=== PATIENT | female | born 1980 | race Caucasian/White ===

== ENCOUNTER 2019-06-05 15:03 | Inpatient (IN) | payer BC, MEDICAID ==
[2019-06-05] VITALS (7 sets, daily range): BP systolic 97–140; BP diastolic 54–80
[~2019-06-05] VITALS: Ht 172.7 cm; Wt 108.5 kg
--- NOTE | ~2019-06-05 | EKG ---
[place], [place] ELECTROCARDIOGRAM REPORT NAME: MEREDITH MEYERS UNIT #: [id number] ROOM: 427 DOCTOR: HUGO DRAFT REPORT BIRTHDATE: [birth year] [facility] Test Date: 2019-06-05 Test Time: 15:42:55 Pat Name: MEREDITH MEYERS Department: Room: 427 Gender: F Loan Associate: TL : 1980 Requested By: SHONA WYNN DNP Order Number: [id number] Reading MD: Rodrigo Palafox MD Measurements Intervals [place] Rate: 56 P: 40 AL: 133 QRS: -16 QRSD: 81 T: -1 QT: 457 QTc: 442 Interpretive Statements Sinus rhythm Borderline left axis deviation Low voltage, precordial leads No previous ECG available for comparison Electronically Signed On 06-07-2019 15:27:18 PDT by Rodrigo Palafox MD CM:EKGRPT:ELECTROCARDIOGRAM REPORT [id number] 1527 SHONA VERDUZCOANY DRAFT REPORT SHONA WYNN DNP
--- NOTE | ~2019-06-05 | CON ---
[place], [place] REPORT OF CONSULTATION NAME: MEREDITH MEYERS UNIT #: [id number] ROOM: 427 DOCTOR: BELTRAN NEALYUDY BIRTHDATE: [birth year] DOS: 06/07/2019 GASTROENDOSCOPIC CONSULTATION REPORT HISTORY OF PRESENT ILLNESS: This is a 39-year-old patient who was presented with chief complaint of epigastric distress, anemia, nausea, status post transfusion of 2 units of packed cells at the time of admission, her hemoglobin A1c was 5.1. Comprehensive metabolic panel, potassium was 3.1. Liver function test normal. Iron 17. B12, folate was reviewed. CBC differential was noticed H and H of 6 and 27, microcytic indices. Vitamin D was low. INR was 0.9. Chest x-ray was reviewed, no acute pathology. Lactic acid was normal. PAST MEDICAL HISTORY: Associated with gastric bypass and weight loss and subsequent regain right now, he is back to 230. Past medical history also associated with migraine, cephalalgia, anxiety and depression. PAST SURGICAL HISTORY: Gastric bypass and Renal. SOCIAL HISTORY: Nonsmoker, nonalcohol consumer. FAMILY HISTORY: Noncontributory. ALLERGIES: AMOXICILLIN. MEDICATIONS: List reviewed. REVIEW OF SYSTEMS: In general: HEENT: Denies double vision, blurred vision. RESPIRATORY: Denies shortness of breath. CARDIOVASCULAR: No chest pain. DIGESTIVE SYSTEM: Nausea, epigastric distress, blood in stool. Post-transfusion profound anemia. PHYSICAL EXAMINATION: GENERAL: Obese patient. HEENT: Head normocephalic, nontraumatic. Mouth and buccal mucosa benign. NECK: Supple, no thyromegaly, no cervical lymphadenopathy. CHEST: Symmetric anatomy, equal expansion. No wheeze, no rhonchi. HEART: Normal sinus rhythm, no gallop, no murmur. ABDOMEN: Obese, soft. No hepato-organomegaly. Bowel sounds present. No pulsatile mass. EXTREMITIES: No cyanosis, no pedal edema. NEUROLOGIC: Alert, oriented to time, place, person. LABORATORY DATA: Labs reviewed. Records reviewed. Data reviewed. Urine culture greater than 100,000, heavy gram-negative bacilli sensitive to all tested antibiotics, supportive management as above. Latest H and H post-transfusion, improved to 9 and 33, B12 and vitamin D low. Comprehensive metabolic panel corrected, a low protein and magnesium 2.4. [place], [place] REPORT OF CONSULTATION NAME: MEREDITH MEYERS UNIT #: [id number] ROOM: 427 DOCTOR: YUDY GONG MD BIRTHDATE: [birth year] IMPRESSION: Urinary tract infection, profound anemia of iron deficiency, status post gastric bypass, ruling out anastomotic site ulcer. OTHER ADJUNCTIVE DIAGNOSES: Anxiety, migraine, cephalalgia depression, all has been recognized. PLAN AND DISCUSSION: We will organize EGD today. Thank you very much indeed. YUDY GONG MD CM:CONSTR:REPORT OF CONSULTATION 1603 06/08/19 0305 interface
--- NOTE | ~2019-06-05 | O ---
[place], [place] [facility]ATIVE NOTE [id number] UN[facility] #: [id number] ROOM: 427 DOCTOR: YUDY GONG MD BIRTHDATE: [birth year] DOS: GASTROENDOSCOPIC REPORT SUBJECTIVE: A 39-year-old patient who has presented with chief complaint of profound anemia, status post transfusion, undergoing investigation. The patient with a history of gastric bypass. PROCEDURE: Today's procedure part of investigation is panendoscopy plus biopsy. PREMEDICATION: Propofol. SCOPE: Olympus forward-viewing gastroscope Q10 video. REPORT: After putting the patient in left lateral position, application of lubricant to the scope, the scope was introduced thereafter, under direct visualization, advanced through the length of esophagus without difficulty. Gastric pouch was entered. Very minimal residual pouch was noticed, status post gastric bypass surgery was noticed. There is no ulceration. There is no anastomotic distress. Photographic series obtained. Biopsy from residual gastric pouch obtained. The patient extubated, tolerated the procedure well. IMPRESSION: EGD status post gastric bypass and status post biopsy. The anemia is not secondary to anastomotic ulcer as expected. PLAN AND DISCUSSION: Other causes of the anemia is microcytic iron deficient anemia has to be investigated. If she is discharged at this time, we are going to make arrangement for outpatient colonoscopy. YUDY GONG MD CM:OPRECORD:OPERATIVE NOTE 1623 1630 YUDY GONG MD 06/07/19 1629 interface
[2019-06-05 16:09] LABS: HEMATOCRIT 25.4 % (37.0-47.0); MEAN CELL VOLUME 62.6 fl (81.0-99.0); MEAN CORPUSCULAR HGB CONC 25.6 g/dl (33.0-37.0); NUCLEATED RED BLOOD CELL 0.3 % (0.0-0.0); PLATELET COUNT AUTOMATED 210 10*3/uL (130-400); RED BLOOD COUNT 4.06 10*6/uL (4.10-5.10); RED CELL DISTRI WIDTH 20.4 % (0-14.5); WHITE BLOOD COUNT 6.2 10*3/uL (4.8-10.8)
--- NOTE | 2019-06-05 16:10 | NUR ---
HEMOGLOBIN CRITICAL AT 6.5 CALLED AT THIS TIME. SHONA MATIAS NOTIFIED.
[2019-06-05 16:11] LABS: HEMOGLOBIN 6.5 g/dl (12.0-16.0)
[2019-06-05 16:17] LABS: ACT PARTIAL THROMBO TIME 23.6 SECONDS (20.0-32.1); INTERNATIONAL NORM RATIO 0.9 (2.0-3.5)
[2019-06-05 16:41] LABS: BASOPHILS 2 % (0-1); TOTAL CELLS COUNTED 100 #CELLS
[2019-06-05 16:42] LABS: MICROCYTOSIS MODERATE; OVALOCYTES FEW; PLATELET SUFFICIENCY NORMAL (NORMAL); SPHEROCYTES FEW
[2019-06-05 16:47] LABS: ALBUMIN 3.2 gm/dl (3.1-4.5); ALKALINE PHOSPHATASE 81 U/L (45-117); BUN 13 mg/dl (7-24); CHLORIDE 117 mmol/L (98-107); CREATININE 0.94 mg/dL (0.55-1.02); IRON 14 ug/dL (50-170); LIPASE 69 U/L (73-393); POTASSIUM 3.3 mmol/L (3.5-5.1); SGOT/AST 9 IU/L (3-35); SGPT/ALT 7 U/L (12-78); SODIUM 143 mmol/L (136-145); TOTAL IRON BINDING CAPACITY 488 ug/dl (250-450); TOTAL PROTEIN 6.5 gm/dL (6.4-8.2)
[2019-06-05 16:59] LABS: BILIRUBIN NEGATIVE (NEGATIVE); BLOOD NEGATIVE (NEGATIVE); CLARITY SL CLOUDY (CLEAR); COLOR YELLOW (YELLOW); GLUCOSE NEGATIVE (NEGATIVE); KETONE NEGATIVE (NEGATIVE); LEUKO ESTERASE TRACE (NEGATIVE); NITRITE POSITIVE (NEGATIVE); SPECIFIC GRAVITY 1.015 (1.005-1.030); UROBILINOGEN 0.2 E.U./dl (0.2-1.0)
[2019-06-05 17:07] LABS: TROPONIN I < 0.015 ng/ml (<0.045)
[2019-06-05 17:22] LABS: BACTERIA 3+
--- NOTE | 2019-06-05 19:22 | NUR ---
SPOKE WITH AMY TO NOTIFY OF ETA TO ROOM.
--- NOTE | 2019-06-05 19:35 | NUR ---
A 39, admitted to , under the services of LUIGI Daugherty DO with a diagnosis of GI BLEED, ANEMIA. Chief complaint is C/O DARK STOOLS X 1 WEEK. Patient arrived via stretcher from ER. Monitor applied. Initial assessment completed. Vital signs taken and recorded. LUIGI DAUGHERTY DO notified of admission to the unit. Orders received. See assessment for past medical history, medications and allergies. Patient and/or family oriented to unit. [facility] visitation policy reviewed. Clothing/patient valuable form completed. NASREEN ALVARADO
[2019-06-05] MEDS ORDERED: KLONOPIN2 M1 PO (20:12)
[2019-06-05] MEDS ORDERED: ZANAFLEX6 M1 PO (20:14)
[2019-06-05] MEDS ORDERED: ZOLOFT100 MG PO (20:14)
[2019-06-06] VITALS (10 sets, daily range): BP systolic 121–154; BP diastolic 66–82
[2019-06-06 00:40] LABS: BASO % 0.4 % (0.0-1.0); EOS # 0.1 10*3/uL (0.0-0.4); EOS % 1.9 % (1.0-4.0); HEMATOCRIT 28.4 % (37.0-47.0); HEMOGLOBIN 7.5 g/dl (12.0-16.0); LYMPH # 1.6 10*3/uL (1.3-4.4); LYMPH % 23.4 % (27.0-41.0); MEAN CELL VOLUME 65.4 fl (81.0-99.0); MEAN CORPUSCULAR HGB 17.3 pg (27.0-31.0); MEAN CORPUSCULAR HGB CONC 26.4 g/dl (33.0-37.0); MONO # 0.5 10*3/uL (0.1-1.0); MONO % 7.1 % (3.0-9.0); NEUT # 4.6 10*3/uL (2.3-7.9); NEUT % 66.2 % (47.0-73.0); NUCLEATED RED BLOOD CELL 0.4 % (0.0-0.0); PLATELET COUNT AUTOMATED 181 10*3/uL (130-400); RED BLOOD COUNT 4.34 10*6/uL (4.10-5.10); WHITE BLOOD COUNT 6.9 10*3/uL (4.8-10.8)
--- NOTE | 2019-06-06 02:03 | NUR ---
PATIENT MEDICATED WITH TYLENOL 650MG PER PRN ORDER FOR C/O HEADACHE. RATED PAIN A 7/10 WITH 10 BEING THE WORST. TEMP TAKEN PRIOR TO TYLENOL WAS 100. SEE EMAR. REINFORCED USE OF CALL LIGHT.
[2019-06-06 06:27] LABS: BASO % 0.3 % (0.0-1.0); EOS % 0.6 % (1.0-4.0); HEMATOCRIT 26.9 % (37.0-47.0); HEMOGLOBIN 7.3 g/dl (12.0-16.0); LYMPH # 0.7 10*3/uL (1.3-4.4); LYMPH % 11.4 % (27.0-41.0); MEAN CELL VOLUME 64.7 fl (81.0-99.0); MEAN CORPUSCULAR HGB 17.5 pg (27.0-31.0); MEAN CORPUSCULAR HGB CONC 27.1 g/dl (33.0-37.0); MONO # 0.2 10*3/uL (0.1-1.0); MONO % 3.8 % (3.0-9.0); NEUT # 5.3 10*3/uL (2.3-7.9); NEUT % 83.3 % (47.0-73.0); NUCLEATED RED BLOOD CELL 0.5 % (0.0-0.0); PLATELET COUNT AUTOMATED 182 10*3/uL (130-400); RED BLOOD COUNT 4.16 10*6/uL (4.10-5.10); RED CELL DISTRI WIDTH 22.8 % (0-14.5); WHITE BLOOD COUNT 6.3 10*3/uL (4.8-10.8)
--- NOTE | 2019-06-06 06:30 | NUR ---
MESSAGE LEFT ON DR. GONG'S ANSWERING SERVICE REGARDING CONSULT ORDER.
[2019-06-06 06:37] LABS: ALBUMIN 3.1 gm/dl (3.1-4.5); ALKALINE PHOSPHATASE 88 U/L (45-117); BUN 10 mg/dl (7-24); CHLORIDE 119 mmol/L (98-107); CHOLESTEROL 170 mg/dL (<200); FREE T4 0.99 ng/dl (0.76-1.46); HDL CHOLESTEROL 50 mg/dl (40-60); LDL CHOLESTEROL 93 mg/dL (9-159); PHOSPHOROUS 2.4 mg/dL (2.5-4.9); POTASSIUM 3.4 mmol/L (3.5-5.1); SGOT/AST 7 IU/L (3-35); SGPT/ALT 12 U/L (12-78); SODIUM 145 mmol/L (136-145); TOTAL PROTEIN 6.3 gm/dL (6.4-8.2); TRIGLYCERIDES 134 mg/dl (<150); VLDL CHOLESTEROL 27 mg/dL (6-40)
[2019-06-06 06:45] LABS: ACT PARTIAL THROMBO TIME 24.8 SECONDS (20.0-32.1)
--- NOTE | 2019-06-06 08:20 | NUR ---
MORPHINE AND ZOFRAN EFFECIVE FOR BONE PAIN AND NAUSEA RELIEF
[2019-06-06 08:43] LABS: VITAMIN D, 25-HYDROXY < 4.2 ng/mL (30-100)
--- NOTE | 2019-06-06 08:45 | NUR ---
SECOND UNIT OF PRBCS STARTED
--- NOTE | 2019-06-06 09:00 | NUR ---
Paper Stacker in to talk to patient. Patient states lives at [place] with family. There are few steps in the home. Physician: none at present [facility]acy: [facility] Home health services: none Patient's level of ADLs: INDEPENDENT Patient has working utilities: all working DME: none Follow-up physician's appointment after d/c: will be made by hospitalist nurse director upon discharge Does patient want to access PORTAL?: no Discharge plan discussed with patient, she states she lives at home with her and their four children, she stated they recently moved here from [place] and her is still working there and only comes home on the weekends, she states her children help her with anything she needs, she states she is independent in adls and ambulation, she also states she doesn't have a regular doctor and would like to have a follow up appointment with the resident clinic, patient states she will return home when medically stable and denies any home needs. CHARLEEN LAU
--- NOTE | 2019-06-06 11:01 | NUR ---
2ND RBC COMPLETED, ORDERED FOR 1400 AND RESULS TO BE CALLED TO [facility]
--- NOTE | 2019-06-06 11:15 | NUR ---
PER DR RUFFIN, PER IS TO HAVE MORPHINE PRIOR TO K-RUN, TO LESSON THE DISCOMFORT OF THE INFUSION
--- NOTE | 2019-06-06 12:00 | NUR ---
MORPHINE GIVEN PRIOR TO K RUN, INFUSING A 10CC PER HOUR
[2019-06-06 14:49] LABS: HEMATOCRIT 33.5 % (37.0-47.0); HEMOGLOBIN 9.2 g/dl (12.0-16.0)
--- NOTE | 2019-06-06 15:21 | NUR ---
Medicated with tylenol per prn order for complaints of occipital headache.
--- NOTE | 2019-06-06 16:50 | NUR ---
Medicated with morphine iv per prn order for complaints of bone pain. Pt states pain 5/10.
--- NOTE | 2019-06-06 17:07 | NUR ---
Pre-op questionaire reviewed with pt and placed in chart.
--- NOTE | 2019-06-06 17:45 | NUR ---
States that morphine effective.
[2019-06-07] VITALS (7 sets, daily range): BP systolic 112–147; BP diastolic 56–88
--- NOTE | 2019-06-07 00:12 | NUR ---
PATIENT REQUESTING PAIN MEDICATION AND MEDICATION FOR SLEEP. MORPHINE AND RESTORIL ADMINISTERED PRESCRIBED. WILL MONITOR FOR EFFECTIVENESS.
--- NOTE | 2019-06-07 01:12 | NUR ---
PATIENT RESTING WITH EYES CLOSED AT THIS TIME. RESPIRATIONS EASY AND UNLABORED. CALL LIGHT WITHIN REACH. WILL MONITOR.
--- NOTE | 2019-06-07 04:31 | NUR ---
24 HR chart check completed.
--- NOTE | 2019-06-07 07:50 | NUR ---
Medicated with morphine iv and zofran iv per prn order for complaints of bone pain and nausea.
--- NOTE | 2019-06-07 09:00 | NUR ---
case management visits with patient she will return home with family when medically stable
--- NOTE | 2019-06-07 13:08 | NUR ---
Medicated with morphine iv per prn order for complaints of bone pain. Pt is asking when EGD will take place. I spoke with Tal in surgery who states there are 7 cases in front of pt and it is her guess that perhaps they would be ready for pt about 230-3 pm. I notified pt of this.
--- NOTE | 2019-06-07 14:00 | NUR ---
States that morphine effective.
--- NOTE | 2019-06-07 15:18 | NUR ---
Booker Sanchez RN here to scrap picker pt to take to OR.
--- NOTE | 2019-06-07 17:35 | NUR ---
Pt c/o hives and itching. Pt has 2 hives she noted to left wrist. States this is what happens when she has amoxicillin. Denies any reactions in past to iv meds uses in procedures. Pt states she had propofol which she has had in past. Denies any swelling of tongue or lips, denies any shortness of breath. I spoke with Dr. Sanchez who states she will order iv benedryl for pt.
--- NOTE | 2019-06-07 17:41 | NUR ---
IV benedryl given per orders.
[2019-06-08] VITALS: BP 143/98
[2019-06-08 01:00] VITALS: BP 130/70
--- NOTE | 2019-06-08 02:06 | NUR ---
24 HR chart check completed.
[2019-06-08 07:21] LABS: HEMATOCRIT 33.4 % (37.0-47.0); HEMOGLOBIN 9.3 g/dl (12.0-16.0); MEAN CELL VOLUME 68.3 fl (81.0-99.0); MEAN CORPUSCULAR HGB CONC 27.8 g/dl (33.0-37.0); NUCLEATED RED BLOOD CELL 0.4 % (0.0-0.0); PLATELET COUNT AUTOMATED 210 10*3/uL (130-400); RED BLOOD COUNT 4.89 10*6/uL (4.10-5.10); RED CELL DISTRI WIDTH 26.5 % (0-14.5); WHITE BLOOD COUNT 5.7 10*3/uL (4.8-10.8)
[2019-06-08 07:26] LABS: BUN 7 mg/dl (7-24); CHLORIDE 119 mmol/L (98-107); CREATININE 0.83 mg/dL (0.55-1.02); POTASSIUM 3.6 mmol/L (3.5-5.1); SODIUM 146 mmol/L (136-145)
[2019-06-08 08:00] VITALS: BP 130/64
[2019-06-08 08:20] LABS: ATYPICAL LYMPHS 1 % (0-0); MICROCYTOSIS SLIGHT; OVALOCYTES MANY; PLATELET SUFFICIENCY NORMAL (NORMAL); POLYCHROMASIA SLIGHT; SCHISTOCYTES FEW; TOTAL CELLS COUNTED 100 #CELLS
[2019-06-08] MEDS ORDERED: VITAMIN D50000 UNIT PO (09:40)
[2019-06-08] MEDS ORDERED: CIPRO500 MG PO (09:41)
[2019-06-08] MEDS ORDERED: SEPTDS PO (10:02)
--- NOTE | 2019-06-08 10:41 | NUR ---
PT EDUCATED ON NEED FOR HER TO CALL DR GONG AND SCHEDULE OUTPATIENT COLO PT ADVISEDED OF NEED TO CALL RESIDENT CLINIC AND SCHEDULE AN EMRE WITH DR LEMUS ON Monday AND TO HAVE HER BLOOD DRAWN THE DAY BEFORE PT ADVISED OF NEW SCRIPTS SENT TO HER PHARMACY PT ADVISED TO NOT TAKE ANY MORTIN/ALEVE/ADVIL PT AND FERNANDA VERBALIZED GOOD UNDERSTANDING OF HOME CARE AND FOLLOW UP
--- NOTE | 2019-06-08 10:45 | NUR ---
DC TO HOME
== END 2019-06-08 10:45 | disposition home or self-care (01) | DRG 378 ==
LOC: ED 15:03 → EDHOLD 17:37 → 4E 17:37
PROVIDERS: Internal Medicine; Nurse Practitioner Family; Registered Nurse; Student in an Organized Health Care Education/Training Program; ADMIT Internal Medicine
PROC: 30233N1 Transfusion of Nonautologous Red Blood Cells into Peripheral Vein, Percutaneous Approach (ICD-10-PCS; principal; 2019-06-05)
PROC: 0DB68ZX Excision of Stomach, Via Natural or Artificial Opening Endoscopic, Diagnostic (ICD-10-PCS; principal; 2019-06-05)
DX: K92.2 Gastrointestinal hemorrhage, unspecified (principal); N39.0 Urinary tract infection, site not specified; E44.0 Moderate protein-calorie malnutrition; D50.0 Iron deficiency anemia secondary to blood loss (chronic); I95.9 Hypotension, unspecified; F41.9 Anxiety disorder, unspecified; F32.9 Major depressive disorder, single episode, unspecified; G43.909 Migraine, unspecified, not intractable, without status migrainosus; I95.89 Other hypotension; E83.41 Hypermagnesemia; E86.1 Hypovolemia; E87.6 Hypokalemia; E87.8 Other disorders of electrolyte and fluid balance, not elsewhere classified; Z98.84 Bariatric surgery status; Z82.49 Family history of ischemic heart disease and other diseases of the circulatory system; Z88.1 Allergy status to other antibiotic agents; Z95.1 Presence of aortocoronary bypass graft; Z68.34 Body mass index [BMI] 34.0-34.9, adult

== ENCOUNTER → 2019-06-05 | Outpatient (CLI) | payer BC, MEDICAID ==
[~2019-06-05] MED LIST: CIPRO500 MG PO; KLONOPIN2 M1 PO; SEPTDS PO; VITAMIN D50000 UNIT PO; ZANAFLEX6 M1 PO; ZOLOFT100 MG PO
[2019-06-05 13:58] LABS: MEAN CELL VOLUME 62.8 fl (81.0-99.0); MEAN CORPUSCULAR HGB CONC 25.6 g/dl (33.0-37.0); NUCLEATED RED BLOOD CELL 0.3 % (0.0-0.0); PLATELET COUNT AUTOMATED 230 10*3/uL (130-400); RED CELL DISTRI WIDTH 20.7 % (0-14.5); WHITE BLOOD COUNT 7.6 10*3/uL (4.8-10.8)
[2019-06-05 14:30] LABS: ALBUMIN 3.4 gm/dl (3.1-4.5); ALKALINE PHOSPHATASE 85 U/L (45-117); BUN 14 mg/dl (7-24); CHLORIDE 113 mmol/L (98-107); CHOLESTEROL 196 mg/dL (<200); CREATININE 0.87 mg/dL (0.55-1.02); HDL CHOLESTEROL 54 mg/dl (40-60); HEMOGLOBIN 6.9 g/dl (12.0-16.0); IRON 17 ug/dL (50-170); LDL CHOLESTEROL 112 mg/dL (9-159); POTASSIUM 3.3 mmol/L (3.5-5.1); SGOT/AST 5 IU/L (3-35); SGPT/ALT 11 U/L (12-78); SODIUM 143 mmol/L (136-145); TOTAL IRON BINDING CAPACITY 518 ug/dl (250-450); TOTAL PROTEIN 6.9 gm/dL (6.4-8.2); TRIGLYCERIDES 148 mg/dl (<150); VLDL CHOLESTEROL 30 mg/dL (6-40)
[2019-06-05 15:05] LABS: VITAMIN D, 25-HYDROXY 7.8 ng/mL (30-100)
[2019-06-05 15:07] LABS: ATYPICAL LYMPHS 1 % (0-0); BASOPHILS 1 % (0-1); TOTAL CELLS COUNTED 100 #CELLS
[2019-06-05 15:08] LABS: MICROCYTOSIS MODERATE; SCHISTOCYTES FEW
[2019-06-05 15:09] LABS: OVALOCYTES FEW; PLATELET SUFFICIENCY NORMAL (NORMAL)
== END | disposition home or self-care (01) ==
LOC: LAB 13:20
PROVIDERS: Physician Assistant
DX: Z51.81 Encounter for therapeutic drug level monitoring (principal); Z59.8 Other problems related to housing and economic circumstances

== ENCOUNTER → 2019-06-25 | Outpatient (CLI) | payer BC ==
[2019-06-25 15:54] LABS: HEMATOCRIT 36.2 % (37.0-47.0); HEMOGLOBIN 10.1 g/dl (12.0-16.0); MEAN CELL VOLUME 75.6 fl (81.0-99.0); MEAN CORPUSCULAR HGB 21.1 pg (27.0-31.0); MEAN CORPUSCULAR HGB CONC 27.9 g/dl (33.0-37.0); MEAN PLATELET VOLUME 8.7 fl (9.6-12.3); PLATELET COUNT AUTOMATED 249 10*3/uL (130-400); RED BLOOD COUNT 4.79 10*6/uL (4.10-5.10); WHITE BLOOD COUNT 8.3 10*3/uL (4.8-10.8)
[2019-06-25 17:18] LABS: OVALOCYTES FEW; PLATELET SUFFICIENCY NORMAL (NORMAL); TOTAL CELLS COUNTED 100 #CELLS
[2019-06-25 17:19] LABS: MICROCYTOSIS MODERATE
== END | disposition home or self-care (01) ==
LOC: LAB 15:18
PROVIDERS: Registered Nurse
DX: D64.9 Anemia, unspecified (principal)

== ENCOUNTER → 2019-06-26 | Outpatient (CLI) | payer BC ==
[~2019-06-26] MED LIST changes: +B121000 MCG/1 IM; +COMPAZINE10 M1 PO; +IMITREX100 MG PO; +REMERON15 M2 PO; +TOPIRAMATE50 M1 PO
== END | disposition home or self-care (01) ==
LOC: RESCLI
DX: Z09 Encounter for follow-up examination after completed treatment for conditions other than malignant neoplasm (principal); Z12.31 Encounter for screening mammogram for malignant neoplasm of breast; Z12.4 Encounter for screening for malignant neoplasm of cervix; F41.9 Anxiety disorder, unspecified; F32.9 Major depressive disorder, single episode, unspecified; G43.019 Migraine without aura, intractable, without status migrainosus; E55.9 Vitamin D deficiency, unspecified; E53.8 Deficiency of other specified B group vitamins; F51.01 Primary insomnia; I95.1 Orthostatic hypotension; R00.0 Tachycardia, unspecified; R03.0 Elevated blood-pressure reading, without diagnosis of hypertension; Z79.899 Other long term (current) drug therapy; Z88.1 Allergy status to other antibiotic agents

== ENCOUNTER → 2019-07-10 | Day surgery (SDC) | payer BC ==
[~2019-07-10] VITALS: Ht 172.7 cm; Wt 108.0 kg
--- NOTE | ~2019-07-10 | O ---
[place], [place] OPERATIVE NOTE NAME: MEREDITH MEYERS UNIT #: [id number] ROOM: DOCTOR: YUDY GONG MD BIRTHDATE: [birth year] DOS: 07/10/2019 HISTORY OF PRESENT ILLNESS: This is a 39-year-old patient who has presented with chief complaint of guaiac positivity, undergoing investigation. PAST MEDICAL HISTORY: Associated morbid obesity, bipolar, anxiety, migraine, cephalalgia. ALLERGIES: AMOXICILLIN. PAST SURGICAL HISTORY: Status post bariatric surgery. PROCEDURE: Today's procedure part of investigation is colonoscopy plus piecemeal polypectomy. PREMEDICATION: Propofol. SCOPE: Olympus forward-viewing colonoscope 10L video. REPORT: After putting the patient in left lateral position and application of lubricant to the scope, the scope was introduced. Thereafter, under direct visualization, the length of colon without difficulty. Base of the cecum explored, appendiceal orifice identified, and ileocecal valve was defined. Severe tortuosity of sigmoid colon and hepatic flexure was noticed. However, this overcame. Scope was gradually withdrawn and about a splenic flexure. Sessile polypoid lesion with piecemeal polypectomy removed. The patient extubated, tolerated the procedure well. IMPRESSION: Tortuous colon, sessile colonic polyp, splenic flexure. PLAN AND DISCUSSION: High fiber diet. ACTIVITY: Ad stephen. FOLLOWUP: Routinely as outpatient. No fatty food. [place], [place] OPERATIVE NOTE NAME: MIRASAMIAA UNIT #: [id number] ROOM: DOCTOR: YUDY GONG MD BIRTHDATE: [birth year] YUDY GONG MD CM:OPRECORD:OPERATIVE NOTE 1146 1222 YUDY GONG MD 07/10/19 1223 interface
[2019-07-10 10:00] VITALS: BP 152/96
[2019-07-10 11:37] VITALS: BP 135/79
[2019-07-10 11:52] VITALS: BP 141/75
--- NOTE | 2019-07-10 12:27 | NUR ---
IV FLUIDS DISCONTINUED BEFORE DISCHARGE @ 1207.
== END | disposition home or self-care (01) ==
LOC: SDC 07-05 14:45
DX: D12.3 Benign neoplasm of transverse colon (principal); D64.9 Anemia, unspecified; F41.9 Anxiety disorder, unspecified; F32.9 Major depressive disorder, single episode, unspecified; G43.909 Migraine, unspecified, not intractable, without status migrainosus; E66.01 Morbid (severe) obesity due to excess calories; Z68.36 Body mass index [BMI] 36.0-36.9, adult; Z88.8 Allergy status to other drugs, medicaments and biological substances; Z98.890 Other specified postprocedural states; Z79.899 Other long term (current) drug therapy; Z88.0 Allergy status to penicillin; Z98.84 Bariatric surgery status

== ENCOUNTER 2019-07-19 08:50 | Emergency (ER) | payer BC ==
[~2019-07-19] VITALS: Ht 172.7 cm; Wt 106.6 kg
[2019-07-19 09:32] LABS: BASO % 0.5 % (0.0-1.0); EOS % 0.3 % (1.0-4.0); HEMATOCRIT 32.6 % (37.0-47.0); HEMOGLOBIN 9.5 g/dl (12.0-16.0); LYMPH # 0.9 10*3/uL (1.3-4.4); LYMPH % 14.4 % (27.0-41.0); MEAN CELL VOLUME 76.5 fl (81.0-99.0); MEAN CORPUSCULAR HGB 22.3 pg (27.0-31.0); MEAN CORPUSCULAR HGB CONC 29.1 g/dl (33.0-37.0); MEAN PLATELET VOLUME 9.1 fl (9.6-12.3); MONO # 0.3 10*3/uL (0.1-1.0); NEUT # 4.9 10*3/uL (2.3-7.9); NEUT % 79.5 % (47.0-73.0); PLATELET COUNT AUTOMATED 147 10*3/uL (130-400); RED BLOOD COUNT 4.26 10*6/uL (4.10-5.10); WHITE BLOOD COUNT 6.2 10*3/uL (4.8-10.8)
[2019-07-19 09:45] LABS: ACT PARTIAL THROMBO TIME 23.8 SECONDS (20.0-32.1)
[2019-07-19 09:50] LABS: ALBUMIN 3.2 gm/dl (3.1-4.5); ALKALINE PHOSPHATASE 78 U/L (45-117); BUN 7 mg/dl (7-24); CHLORIDE 112 mmol/L (98-107); CREATININE 0.84 mg/dL (0.55-1.02); POTASSIUM 2.6 mmol/L (3.5-5.1); SGOT/AST 15 IU/L (3-35); SGPT/ALT 13 U/L (12-78); SODIUM 146 mmol/L (136-145); TOTAL PROTEIN 6.3 gm/dL (6.4-8.2); TROPONIN I 0.027 ng/ml (<0.045)
[2019-07-19 09:55] LABS: ETHYL ALCOHOL < 3.0 mg/dl (<3)
[2019-07-19 13:09] LABS: BILIRUBIN NEGATIVE (NEGATIVE); BLOOD NEGATIVE (NEGATIVE); CLARITY CLEAR (CLEAR); COLOR YELLOW (YELLOW); GLUCOSE NEGATIVE (NEGATIVE); KETONE NEGATIVE (NEGATIVE); LEUKO ESTERASE NEGATIVE (NEGATIVE); NITRITE NEGATIVE (NEGATIVE); UROBILINOGEN 0.2 E.U./dl (0.2-1.0)
[2019-07-19 13:17] LABS: BACTERIA 2+
[2019-07-19 13:18] LABS: URINE AMPHETAMINES < 1000 (1000ng/ml); URINE BARBITURATES < 200 (200ng/ml); URINE BENZODIAZEPINES > 200 (200ng/ml); URINE CANNABINOIDS (THC) < 50 (50ng/ml); URINE COCAINE < 300 (300ng/ml); URINE METHADONE < 300 (300ng/ml); URINE OPIATES < 300 (300ng/ml); URINE PHENCYCLIDINE < 25 (25ng/ml)
== END 2019-07-20 15:38 | disposition short-term general hospital (02) ==
LOC: ED 08:50
PROVIDERS: Emergency Medicine
DX: R56.9 Unspecified convulsions (principal); E87.6 Hypokalemia; F13.231 Sedative, hypnotic or anxiolytic dependence with withdrawal delirium; R79.1 Abnormal coagulation profile; G43.909 Migraine, unspecified, not intractable, without status migrainosus; Z88.1 Allergy status to other antibiotic agents; Z79.899 Other long term (current) drug therapy

== ENCOUNTER 2019-07-24 17:50 | Emergency (ER) | payer BC ==
[~2019-07-24] VITALS: Ht 170.1 cm; Wt 109.3 kg
== END 2019-07-24 20:55 | disposition short-term general hospital (02) ==
LOC: ED 17:50
DX: G40.909 Epilepsy, unspecified, not intractable, without status epilepticus (principal); G43.909 Migraine, unspecified, not intractable, without status migrainosus; Z88.1 Allergy status to other antibiotic agents; Z79.899 Other long term (current) drug therapy

== ENCOUNTER → 2019-08-06 | Outpatient (CLI) | payer BC | END | disposition home or self-care (01) | LOC: RESCLI 01:05 | DX: F32.9 Major depressive disorder, single episode, unspecified (principal); G43.019 Migraine without aura, intractable, without status migrainosus; E55.9 Vitamin D deficiency, unspecified; E53.8 Deficiency of other specified B group vitamins; F51.01 Primary insomnia; E03.9 Hypothyroidism, unspecified; I10 Essential (primary) hypertension; K92.2 Gastrointestinal hemorrhage, unspecified; R56.9 Unspecified convulsions; Z79.899 Other long term (current) drug therapy; Z88.1 Allergy status to other antibiotic agents ==

== ENCOUNTER → 2019-08-09 | Outpatient (CLI) | payer BC | END | disposition home or self-care (01) | LOC: RESCLI 08:46 | DX: F41.9 Anxiety disorder, unspecified (principal); F32.9 Major depressive disorder, single episode, unspecified; G43.019 Migraine without aura, intractable, without status migrainosus; E55.9 Vitamin D deficiency, unspecified; E53.8 Deficiency of other specified B group vitamins; F51.01 Primary insomnia; E03.9 Hypothyroidism, unspecified; I10 Essential (primary) hypertension; M25.561 Pain in right knee; M06.9 Rheumatoid arthritis, unspecified; R56.9 Unspecified convulsions; Z79.899 Other long term (current) drug therapy; Z98.890 Other specified postprocedural states; Z88.1 Allergy status to other antibiotic agents ==

== ENCOUNTER → 2019-09-02 | Outpatient (CLI) | payer BC | END | disposition home or self-care (01) | LOC: ORTHO 03:27 | DX: M25.561 Pain in right knee (principal) ==

== ENCOUNTER 2020-03-20 09:36 | Emergency (ER) | payer BC, OTHER ==
[~2020-03-20] VITALS: Ht 172.7 cm; Wt 108.9 kg
[2020-03-20] MEDS ORDERED: BUSPIRONE HCL10 MG PO (09:52)
[2020-03-20] MEDS ORDERED: ONDANSETRON HYDR4 MG PO (09:52)
[2020-03-20] MEDS ORDERED: DEXAMETHASONE4 MG PO (09:54)
[2020-03-20] MEDS ORDERED: LEVETIRACETAM500 MG PO (09:55)
[2020-03-20] MEDS ORDERED: TRAZODONE150 MG PO (09:55)
[2020-03-20] MEDS ORDERED: HYDROXYZINE PAM50 MG PO (09:56)
[2020-03-20] MEDS ORDERED: LISINOPRIL5 MG PO (09:56)
[2020-03-20] MEDS ORDERED: BENZTROPINE MESY1 MG PO (09:56)
[2020-03-20] MEDS ORDERED: VRAYLAR1.5 MG PO (09:56)
[2020-03-20] MEDS ORDERED: METOCLOPRAMIDE10 M1 PO (09:57)
[2020-03-20 11:17] LABS: BASO % 0.3 % (0.0-1.0); EOS # 0.2 10*3/uL (0.0-0.4); EOS % 2.6 % (1.0-4.0); LYMPH # 1.3 10*3/uL (1.3-4.4); LYMPH % 20.9 % (27.0-41.0); MEAN CELL VOLUME 74.7 fl (81.0-99.0); MEAN CORPUSCULAR HGB 21.8 pg (27.0-31.0); MEAN CORPUSCULAR HGB CONC 29.2 g/dl (33.0-37.0); MONO # 0.3 10*3/uL (0.1-1.0); MONO % 4.6 % (3.0-9.0); NEUT # 4.4 10*3/uL (2.3-7.9); NEUT % 71.3 % (47.0-73.0); PLATELET COUNT AUTOMATED 215 10*3/uL (130-400); RED BLOOD COUNT 5.22 10*6/uL (4.10-5.10); RED CELL DISTRI WIDTH 18.1 % (0-14.5); WHITE BLOOD COUNT 6.1 10*3/uL (4.8-10.8)
[2020-03-20 11:32] LABS: ALKALINE PHOSPHATASE 83 U/L (45-117); BUN 14 mg/dl (7-24); CHLORIDE 117 mmol/L (98-107); CREATININE 0.95 mg/dL (0.55-1.02); POTASSIUM 3.4 mmol/L (3.5-5.1); SGOT/AST 6 IU/L (3-35); SGPT/ALT 20 U/L (12-78); SODIUM 141 mmol/L (136-145); TOTAL PROTEIN 6.9 gm/dL (6.4-8.2)
== END 2020-03-20 14:21 | disposition home or self-care (01) ==
LOC: ED 09:36
PROVIDERS: Emergency Medicine
DX: D50.9 Iron deficiency anemia, unspecified (principal)

== ENCOUNTER → 2020-05-22 | Outpatient (CLI) | payer OTHER ==
[~2020-05-22] MED LIST changes: +BENZTROPINE MESY1 MG PO; +BUSPIRONE HCL10 MG PO; +DEXAMETHASONE4 MG PO; +HYDROXYZINE PAM50 MG PO; +LEVETIRACETAM500 MG PO; +LISINOPRIL5 MG PO; +METOCLOPRAMIDE10 M1 PO; +ONDANSETRON HYDR4 MG PO; +TRAZODONE150 MG PO; +VRAYLAR1.5 MG PO
[2020-05-22 14:40] LABS: BASO % 0.6 % (0.0-1.0); EOS # 0.1 10*3/uL (0.0-0.4); EOS % 1.4 % (1.0-4.0); HEMATOCRIT 44.1 % (37.0-47.0); LYMPH # 1.8 10*3/uL (1.3-4.4); LYMPH % 25.6 % (27.0-41.0); MEAN CORPUSCULAR HGB 22.3 pg (27.0-31.0); MEAN PLATELET VOLUME 8.8 fl (9.6-12.3); MONO # 0.4 10*3/uL (0.1-1.0); NEUT # 4.8 10*3/uL (2.3-7.9); NEUT % 66.8 % (47.0-73.0); PLATELET COUNT AUTOMATED 174 10*3/uL (130-400); RED BLOOD COUNT 5.73 10*6/uL (4.10-5.10); RED CELL DISTRI WIDTH 18.4 % (0-14.5); WHITE BLOOD COUNT 7.2 10*3/uL (4.8-10.8)
[2020-05-22 15:04] LABS: ALBUMIN 3.6 gm/dl (3.1-4.5); ALKALINE PHOSPHATASE 109 U/L (45-117); BUN 16 mg/dl (7-24); CHLORIDE 113 mmol/L (98-107); CHOLESTEROL 210 mg/dL (<200); CREATININE 0.98 mg/dL (0.55-1.02); HDL CHOLESTEROL 51 mg/dl (40-60); LDL CHOLESTEROL 130 mg/dL (9-159); POTASSIUM 3.6 mmol/L (3.5-5.1); SGOT/AST 6 IU/L (3-35); SGPT/ALT 14 U/L (12-78); SODIUM 140 mmol/L (136-145); TOTAL PROTEIN 7.6 gm/dL (6.4-8.2); TRIGLYCERIDES 146 mg/dl (<150); VLDL CHOLESTEROL 29 mg/dL (6-40)
[2020-05-22 15:05] LABS: IRON 58 ug/dL (50-170)
[2020-05-22 17:54] LABS: VITAMIN D, 25-HYDROXY 16.7 ng/mL (30-100)
== END | disposition home or self-care (01) ==
LOC: LAB 14:21
PROVIDERS: ATTEND Physician Assistant
DX: G43.709 Chronic migraine without aura, not intractable, without status migrainosus (principal); Z51.81 Encounter for therapeutic drug level monitoring; Z79.899 Other long term (current) drug therapy

== ENCOUNTER 2020-08-18 09:49 | Observation (INO) | payer OTHER ==
[~2020-08-18] VITALS: Ht 172.7 cm; Wt 104.4 kg
[2020-08-18 10:17] VITALS: BP 147/87
[2020-08-18 10:19] LABS: BASO # 0.1 10*3/uL (0.0-0.1); BASO % 0.9 % (0.0-1.0); EOS # 0.1 10*3/uL (0.0-0.4); EOS % 1.8 % (1.0-4.0); HEMATOCRIT 38.2 % (37.0-47.0); LYMPH # 1.4 10*3/uL (1.3-4.4); LYMPH % 24.5 % (27.0-41.0); MEAN CELL VOLUME 75.5 fl (81.0-99.0); MEAN CORPUSCULAR HGB 21.9 pg (27.0-31.0); MEAN CORPUSCULAR HGB CONC 29.1 g/dl (33.0-37.0); MEAN PLATELET VOLUME 9.4 fl (9.6-12.3); MONO # 0.3 10*3/uL (0.1-1.0); MONO % 4.9 % (3.0-9.0); NEUT # 3.8 10*3/uL (2.3-7.9); NEUT % 67.7 % (47.0-73.0); PLATELET COUNT AUTOMATED 218 10*3/uL (130-400); RED BLOOD COUNT 5.06 10*6/uL (4.10-5.10); RED CELL DISTRI WIDTH 16.4 % (0-14.5); WHITE BLOOD COUNT 5.7 10*3/uL (4.8-10.8)
[2020-08-18 10:30] LABS: ACT PARTIAL THROMBO TIME 25.1 SECONDS (20.0-32.1)
[2020-08-18 10:36] LABS: ALBUMIN 3.2 gm/dl (3.1-4.5); ALKALINE PHOSPHATASE 112 U/L (45-117); BUN 11 mg/dl (7-24); CHLORIDE 113 mmol/L (98-107); CREATININE 1.07 mg/dL (0.55-1.02); POTASSIUM 2.8 mmol/L (3.5-5.1); SGPT/ALT 11 U/L (12-78); SODIUM 142 mmol/L (136-145)
[2020-08-18 10:37] LABS: SGOT/AST < 3 IU/L (3-35); TROPONIN I < 0.015 ng/ml (<0.045)
[2020-08-18 14:55] VITALS: BP 144/66
[2020-08-18] MEDS ORDERED: NUVARING VAGIN1 EAC1 DEVI (16:29)
[2020-08-18] MEDS ORDERED: PRISTIQ ER25 MG PO (16:30)
[2020-08-18] MEDS ORDERED: KLONOPIN2 M1 PO (16:30)
[2020-08-18 22:45] VITALS: BP 105/72
[2020-08-19] VITALS: BP 99/57
[2020-08-19] MEDS ORDERED: WEEKLY-D1250 MCG PO (00:11)
[2020-08-19] MEDS ORDERED: DECADRON4 MG PO (00:12)
[2020-08-19 02:36] LABS: BILIRUBIN Negative (Negative); BLOOD 1+ (Negative); CLARITY Turbid (Clear); COLOR Dark Yellow (Yellow); GLUCOSE Negative (Negative); KETONE Trace (Negative); LEUKO ESTERASE Negative (Negative); NITRITE Positive (Negative); SPECIFIC GRAVITY >= 1.030 (1.001-1.030)
[2020-08-19 03:25] LABS: RBC 16-20 rbc/hpf (0-2)
[2020-08-19 03:26] LABS: BACTERIA 1+
[2020-08-19 06:57] LABS: BASO % 0.9 % (0.0-1.0); EOS # 0.1 10*3/uL (0.0-0.4); EOS % 2.3 % (1.0-4.0); HEMATOCRIT 36.9 % (37.0-47.0); LYMPH # 1.2 10*3/uL (1.3-4.4); LYMPH % 27.3 % (27.0-41.0); MEAN CELL VOLUME 76.7 fl (81.0-99.0); MEAN CORPUSCULAR HGB 22.2 pg (27.0-31.0); MEAN PLATELET VOLUME 9.5 fl (9.6-12.3); MONO # 0.2 10*3/uL (0.1-1.0); MONO % 5.5 % (3.0-9.0); NEUT # 2.8 10*3/uL (2.3-7.9); NEUT % 63.8 % (47.0-73.0); PLATELET COUNT AUTOMATED 214 10*3/uL (130-400); RED BLOOD COUNT 4.81 10*6/uL (4.10-5.10); RED CELL DISTRI WIDTH 16.4 % (0-14.5); WHITE BLOOD COUNT 4.3 10*3/uL (4.8-10.8)
[2020-08-19 07:24] LABS: BUN 12 mg/dl (7-24); CHLORIDE 114 mmol/L (98-107); CREATININE 0.91 mg/dL (0.55-1.02); POTASSIUM 3.7 mmol/L (3.5-5.1); SODIUM 141 mmol/L (136-145)
[2020-08-19 08:00] VITALS: BP 104/65
[2020-08-19] MEDS ORDERED: MACROBID100 M1 PO (11:32)
[2020-08-19] MEDS ORDERED: XARELTO1 EACH PO (11:32)
== END 2020-08-19 14:00 | disposition home or self-care (01) ==
LOC: ED 09:49 → EDHOLD 14:06 → 5E 22:04
PROVIDERS: Emergency Medicine; Student in an Organized Health Care Education/Training Program; ADMIT Internal Medicine; ATTEND Internal Medicine
DX: I26.99 Other pulmonary embolism without acute cor pulmonale (principal); R06.82 Tachypnea, not elsewhere classified; R07.89 Other chest pain; S80.11XA Contusion of right lower leg, initial encounter; R42 Dizziness and giddiness; E87.6 Hypokalemia; N17.0 Acute kidney failure with tubular necrosis; D50.9 Iron deficiency anemia, unspecified; F41.9 Anxiety disorder, unspecified; F32.9 Major depressive disorder, single episode, unspecified; E44.0 Moderate protein-calorie malnutrition; E55.9 Vitamin D deficiency, unspecified; E53.9 Vitamin B deficiency, unspecified; R56.9 Unspecified convulsions; X58.XXXA Exposure to other specified factors, initial encounter; Y92.89 Other specified places as the place of occurrence of the external cause; Y93.89 Activity, other specified; Y99.8 Other external cause status

== ENCOUNTER 2020-08-26 09:55 | Emergency (ER) | payer OTHER ==
[~2020-08-26] VITALS: Ht 172.7 cm; Wt 104.3 kg
[~2020-08-26 09:55] MED LIST changes: -PERCOCET 5-3251 EACH PO; -PHENERGAN25 M3 PO; -PYRIDIUM200 M1 PO
[2020-08-26 10:47] LABS: BILIRUBIN Negative (Negative); BLOOD 1+ (Negative); CLARITY Clear (Clear); COLOR Yellow (Yellow); GLUCOSE Negative (Negative); KETONE Trace (Negative); LEUKO ESTERASE Negative (Negative); NITRITE Negative (Negative); SPECIFIC GRAVITY 1.025 (1.001-1.030)
[2020-08-26 10:53] LABS: BASO # 0.1 10*3/uL (0.0-0.1); BASO % 0.9 % (0.0-1.0); EOS # 0.1 10*3/uL (0.0-0.4); EOS % 1.7 % (1.0-4.0); HEMATOCRIT 41.8 % (37.0-47.0); LYMPH # 1.6 10*3/uL (1.3-4.4); LYMPH % 24.5 % (27.0-41.0); MEAN CELL VOLUME 76.3 fl (81.0-99.0); MEAN CORPUSCULAR HGB 21.7 pg (27.0-31.0); MEAN CORPUSCULAR HGB CONC 28.5 g/dl (33.0-37.0); MEAN PLATELET VOLUME 8.9 fl (9.6-12.3); MONO # 0.3 10*3/uL (0.1-1.0); MONO % 4.4 % (3.0-9.0); NEUT # 4.5 10*3/uL (2.3-7.9); NEUT % 67.9 % (47.0-73.0); PLATELET COUNT AUTOMATED 268 10*3/uL (130-400); RED BLOOD COUNT 5.48 10*6/uL (4.10-5.10); RED CELL DISTRI WIDTH 16.2 % (0-14.5); WHITE BLOOD COUNT 6.7 10*3/uL (4.8-10.8)
[2020-08-26 11:04] LABS: BACTERIA 2+; MUCOUS 2+
[2020-08-26 11:04] LABS: ACT PARTIAL THROMBO TIME 28.7 SECONDS (20.0-32.1)
[2020-08-26 11:13] LABS: ALBUMIN 3.3 gm/dl (3.1-4.5); ALKALINE PHOSPHATASE 117 U/L (45-117); BETA-HCG, QUANT < 1.0 mIU/mL (1-3); BUN 10 mg/dl (7-24); CHLORIDE 112 mmol/L (98-107); CREATININE 0.99 mg/dL (0.55-1.02); LIPASE 115 U/L (73-393); POTASSIUM 3.3 mmol/L (3.5-5.1); SGOT/AST < 3 IU/L (3-35); SGPT/ALT 10 U/L (12-78); SODIUM 139 mmol/L (136-145); TOTAL PROTEIN 7.7 gm/dL (6.4-8.2); TROPONIN I < 0.015 ng/ml (<0.045)
[2020-08-26] MEDS ORDERED: PERCOCET 5-3251 EACH PO (13:03)
[2020-08-26] MEDS ORDERED: PHENERGAN25 M3 PO (13:03)
[2020-08-26] MEDS ORDERED: CIPRO500 MG PO (13:03)
== END 2020-08-26 13:10 | disposition home or self-care (01) ==
LOC: ED 09:55
PROVIDERS: Emergency Medicine
DX: N39.0 Urinary tract infection, site not specified (principal); R79.1 Abnormal coagulation profile; Z88.1 Allergy status to other antibiotic agents; Z79.899 Other long term (current) drug therapy

== ENCOUNTER → 2020-08-26 | Outpatient (CLI) | payer OTHER ==
[~2020-08-26] MED LIST changes: +DECADRON4 MG PO; +MACROBID100 M1 PO; +NUVARING VAGIN1 EAC1 DEVI; +PERCOCET 5-3251 EACH PO; +PHENERGAN25 M3 PO; +PRISTIQ ER25 MG PO; +PYRIDIUM200 M1 PO; +WEEKLY-D1250 MCG PO; +XARELTO1 EACH PO
== END | disposition home or self-care (01) ==
LOC: RESCLI 08:20
PROVIDERS: ATTEND Student in an Organized Health Care Education/Training Program
DX: R56.9 Unspecified convulsions (principal); E03.9 Hypothyroidism, unspecified; I10 Essential (primary) hypertension; M06.9 Rheumatoid arthritis, unspecified; F32.9 Major depressive disorder, single episode, unspecified; F41.9 Anxiety disorder, unspecified; E55.9 Vitamin D deficiency, unspecified; G43.019 Migraine without aura, intractable, without status migrainosus; Z79.899 Other long term (current) drug therapy

== ENCOUNTER 2020-09-30 10:05 | Emergency (ER) | payer OTHER ==
[~2020-09-30] VITALS: Wt 102.1 kg
[~2020-09-30 10:05] MED LIST changes: +PERCOCET 5-3251 EACH PO; +PHENERGAN25 M3 PO
[2020-09-30 10:58] LABS: BASO % 0.6 % (0.0-1.0); EOS # 0.1 10*3/uL (0.0-0.4); EOS % 1.7 % (1.0-4.0); HEMATOCRIT 38.2 % (37.0-47.0); LYMPH # 1.3 10*3/uL (1.3-4.4); LYMPH % 24.6 % (27.0-41.0); MEAN CELL VOLUME 75.8 fl (81.0-99.0); MEAN CORPUSCULAR HGB 21.6 pg (27.0-31.0); MEAN CORPUSCULAR HGB CONC 28.5 g/dl (33.0-37.0); MEAN PLATELET VOLUME 8.8 fl (9.6-12.3); MONO # 0.3 10*3/uL (0.1-1.0); MONO % 6.3 % (3.0-9.0); NEUT # 3.6 10*3/uL (2.3-7.9); NEUT % 66.2 % (47.0-73.0); PLATELET COUNT AUTOMATED 207 10*3/uL (130-400); RED BLOOD COUNT 5.04 10*6/uL (4.10-5.10); RED CELL DISTRI WIDTH 17.2 % (0-14.5); WHITE BLOOD COUNT 5.4 10*3/uL (4.8-10.8)
[2020-09-30 11:13] LABS: ALBUMIN 2.9 gm/dl (3.1-4.5); ALKALINE PHOSPHATASE 98 U/L (45-117); BUN 8 mg/dl (7-24); CHLORIDE 116 mmol/L (98-107); CREATININE 0.76 mg/dL (0.55-1.02); POTASSIUM 3.8 mmol/L (3.5-5.1); SGOT/AST 5 IU/L (3-35); SGPT/ALT 9 U/L (12-78); SODIUM 144 mmol/L (136-145); TOTAL PROTEIN 6.4 gm/dL (6.4-8.2)
[2020-09-30 11:20] LABS: BILIRUBIN Negative (Negative); BLOOD Negative (Negative); CLARITY Cloudy (Clear); COLOR Yellow (Yellow); GLUCOSE Negative (Negative); KETONE Negative (Negative); LEUKO ESTERASE Trace (Negative); NITRITE Negative (Negative); SPECIFIC GRAVITY 1.015 (1.001-1.030)
[2020-10-01] MEDS ORDERED: PYRIDIUM200 M1 PO (21:07)
[2020-10-01] MEDS ORDERED: SEPTDS PO (21:07)
== END 2020-09-30 12:09 | disposition home or self-care (01) ==
LOC: ED 10:05
PROVIDERS: Nurse Practitioner
DX: N32.89 Other specified disorders of bladder (principal); F31.9 Bipolar disorder, unspecified; R56.9 Unspecified convulsions; Z88.8 Allergy status to other drugs, medicaments and biological substances; Z79.899 Other long term (current) drug therapy; Z98.890 Other specified postprocedural states

== ENCOUNTER 2020-10-01 15:59 | Emergency (ER) | payer OTHER ==
[~2020-10-01] VITALS: Ht 172.7 cm; Wt 102.1 kg
[2020-10-01 18:47] LABS: BASO # 0.1 10*3/uL (0.0-0.1); BASO % 0.6 % (0.0-1.0); EOS # 0.1 10*3/uL (0.0-0.4); EOS % 1.4 % (1.0-4.0); HEMATOCRIT 40.2 % (37.0-47.0); LYMPH # 1.9 10*3/uL (1.3-4.4); MEAN CELL VOLUME 76.7 fl (81.0-99.0); MEAN CORPUSCULAR HGB 21.8 pg (27.0-31.0); MEAN CORPUSCULAR HGB CONC 28.4 g/dl (33.0-37.0); MEAN PLATELET VOLUME 9.3 fl (9.6-12.3); MONO # 0.4 10*3/uL (0.1-1.0); MONO % 4.8 % (3.0-9.0); NEUT # 6.2 10*3/uL (2.3-7.9); NEUT % 70.7 % (47.0-73.0); PLATELET COUNT AUTOMATED 240 10*3/uL (130-400); RED BLOOD COUNT 5.24 10*6/uL (4.10-5.10); WHITE BLOOD COUNT 8.8 10*3/uL (4.8-10.8)
[2020-10-01 18:52] LABS: BILIRUBIN Negative (Negative); BLOOD 3+ (Negative); CLARITY Clear (Clear); COLOR Yellow (Yellow); GLUCOSE Negative (Negative); KETONE Trace (Negative); LEUKO ESTERASE Negative (Negative); NITRITE Negative (Negative); SPECIFIC GRAVITY >= 1.030 (1.001-1.030)
[2020-10-01 19:02] LABS: ALKALINE PHOSPHATASE 106 U/L (45-117); BUN 11 mg/dl (7-24); CHLORIDE 117 mmol/L (98-107); CREATININE 0.93 mg/dL (0.55-1.02); LIPASE 111 U/L (73-393); SGPT/ALT 12 U/L (12-78); SODIUM 141 mmol/L (136-145)
[2020-10-01 19:05] LABS: BACTERIA TRACE; EPITHELIAL CELLS 0-2; RBC 31-40 rbc/hpf (0-2)
[2020-10-01 19:12] LABS: SGOT/AST < 3 IU/L (3-35)
[2020-10-01] MEDS ORDERED: SEPTDS PO (21:07)
[2020-10-01] MEDS ORDERED: PYRIDIUM200 M1 PO (21:07)
== END 2020-10-01 21:41 | disposition home or self-care (01) ==
LOC: ED 15:59
PROVIDERS: Physician Assistant
DX: R30.0 Dysuria (principal); R56.9 Unspecified convulsions; F41.9 Anxiety disorder, unspecified; F31.9 Bipolar disorder, unspecified; Z88.8 Allergy status to other drugs, medicaments and biological substances; Z79.899 Other long term (current) drug therapy; Z98.890 Other specified postprocedural states

== ENCOUNTER → 2020-10-05 | Outpatient (CLI) | payer OTHER ==
[~2020-10-05] MED LIST changes: +PYRIDIUM200 M1 PO
== END | disposition home or self-care (01) ==
LOC: RESCLI 06:50
PROVIDERS: ATTEND Internal Medicine Nephrology
DX: R35.0 Frequency of micturition (principal); I26.94 Multiple subsegmental thrombotic pulmonary emboli without acute cor pulmonale; I10 Essential (primary) hypertension; F41.9 Anxiety disorder, unspecified; G43.019 Migraine without aura, intractable, without status migrainosus; E03.9 Hypothyroidism, unspecified; M54.5 Low back pain; Z12.4 Encounter for screening for malignant neoplasm of cervix; F32.9 Major depressive disorder, single episode, unspecified; R56.9 Unspecified convulsions; Z79.899 Other long term (current) drug therapy; Z90.5 Acquired absence of kidney; Z88.8 Allergy status to other drugs, medicaments and biological substances; Z98.890 Other specified postprocedural states

== ENCOUNTER → 2020-11-13 | Outpatient (CLI) | payer OTHER | END | disposition home or self-care (01) | LOC: RESCLI 00:57 | PROVIDERS: ATTEND Family Medicine | DX: I26.94 Multiple subsegmental thrombotic pulmonary emboli without acute cor pulmonale (principal); I10 Essential (primary) hypertension; F41.9 Anxiety disorder, unspecified; G43.019 Migraine without aura, intractable, without status migrainosus; E03.9 Hypothyroidism, unspecified; M54.5 Low back pain; F32.9 Major depressive disorder, single episode, unspecified; R56.9 Unspecified convulsions; J30.2 Other seasonal allergic rhinitis; Z12.4 Encounter for screening for malignant neoplasm of cervix; Z79.899 Other long term (current) drug therapy; Z98.890 Other specified postprocedural states; Z88.8 Allergy status to other drugs, medicaments and biological substances ==

== ENCOUNTER → 2021-04-07 | Outpatient (CLI) | payer OTHER ==
[2021-04-07 12:37] LABS: BILIRUBIN 1+ (Negative); BLOOD Negative (Negative); CLARITY Cloudy (Clear); COLOR Dark Yellow (Yellow); GLUCOSE Negative (Negative); KETONE Negative (Negative); NITRITE Positive (Negative); PH 5.5 (4.5-8.0); SPECIFIC GRAVITY <= 1.005 (1.001-1.030)
[2021-04-07 12:39] LABS: LEUKO ESTERASE 1+ (Negative)
[2021-04-07 13:42] LABS: BACTERIA 4+; EPITHELIAL CELLS 21-30
== END | disposition home or self-care (01) ==
LOC: LAB 12:02
PROVIDERS: Urology; ATTEND Internal Medicine Nephrology
DX: G43.709 Chronic migraine without aura, not intractable, without status migrainosus (principal)

== ENCOUNTER 2021-05-03 18:02 | Emergency (ER) | payer OTHER ==
[~2021-05-03] VITALS: Wt 105.2 kg
== END 2021-05-03 21:13 | disposition left against medical advice (07) ==
LOC: ED 18:02
DX: K08.89 Other specified disorders of teeth and supporting structures (principal); Z53.21 Procedure and treatment not carried out due to patient leaving prior to being seen by health care provider

== ENCOUNTER 2022-05-09 20:04 | Inpatient (IN) | payer OTHER ==
[~2022-05-09] VITALS: Ht 172.7 cm; Wt 93.7 kg
[2022-05-09 20:11] VITALS: BP 134/81
[2022-05-09 20:39] VITALS: BP 125/83
[2022-05-09 21:43] LABS: BASO # 0.1 10*3/uL (0.0-0.1); BASO % 0.6 % (0.0-1.0); EOS # 0.3 10*3/uL (0.0-0.4); EOS % 3.2 % (1.0-4.0); HEMATOCRIT 28.9 % (37.0-47.0); LYMPH # 1.6 10*3/uL (1.3-4.4); LYMPH % 19.4 % (27.0-41.0); MEAN CELL VOLUME 59.3 fl (81.0-99.0); MEAN CORPUSCULAR HGB 14.4 pg (27.0-31.0); MEAN CORPUSCULAR HGB CONC 24.2 g/dl (33.0-37.0); MEAN PLATELET VOLUME 8.8 fl (9.6-12.3); MONO # 0.5 10*3/uL (0.1-1.0); MONO % 6.3 % (3.0-9.0); NEUT # 5.9 10*3/uL (2.3-7.9); NEUT % 70.1 % (47.0-73.0); NUCLEATED RED BLOOD CELL 0.2 % (0.0-0.0); PLATELET COUNT AUTOMATED 341 10*3/uL (130-400); RED BLOOD COUNT 4.87 10*6/uL (4.10-5.10); RED CELL DISTRI WIDTH 22.5 % (0-14.5); WHITE BLOOD COUNT 8.4 10*3/uL (4.8-10.8)
[2022-05-09 21:52] LABS: INTERNATIONAL NORM RATIO 0.9 (2.0-3.5)
[2022-05-09 21:57] LABS: ALKALINE PHOSPHATASE 73 U/L (45-117); BUN 12 mg/dl (7-24); CHLORIDE 113 mmol/L (98-107); CREATININE 0.66 mg/dL (0.55-1.02); POTASSIUM 3.2 mmol/L (3.5-5.1); SGOT/AST 6 IU/L (3-35); SGPT/ALT 11 U/L (12-78); SODIUM 143 mmol/L (136-145); TOTAL PROTEIN 6.2 gm/dL (6.4-8.2)
[2022-05-09 22:41] LABS: BILIRUBIN Negative (Negative); BLOOD Negative (Negative); CLARITY Turbid (Clear); COLOR Yellow (Yellow); GLUCOSE Negative (Negative); KETONE Trace (Negative); LEUKO ESTERASE 2+ (Negative); NITRITE Negative (Negative); SPECIFIC GRAVITY >= 1.030 (1.001-1.030)
[2022-05-09 22:54] LABS: BACTERIA 2+; EPITHELIAL CELLS 16-20; WBC 21-30 wbc/hpf (0-5)
[2022-05-10] VITALS (9 sets, daily range): BP systolic 109–124; BP diastolic 57–75
[2022-05-10 05:02] LABS: ALKALINE PHOSPHATASE 65 U/L (45-117); BUN 13 mg/dl (7-24); CHLORIDE 116 mmol/L (98-107); CHOLESTEROL 120 mg/dL (<200); CREATININE 0.63 mg/dL (0.55-1.02); IRON 9 ug/dL (50-170); LDL CHOLESTEROL 60 mg/dL (9-159); SGPT/ALT 10 U/L (12-78); SODIUM 145 mmol/L (136-145); TOTAL PROTEIN 5.7 gm/dL (6.4-8.2); TRIGLYCERIDES 86 mg/dl (<150)
[2022-05-10 05:03] LABS: SGOT/AST < 3 IU/L (3-35)
[2022-05-10 05:10] LABS: FREE T4 1.14 ng/dl (0.76-1.46)
[2022-05-10 06:19] LABS: HEMATOCRIT 25.2 % (37.0-47.0); MEAN CELL VOLUME 57.8 fl (81.0-99.0); MEAN CORPUSCULAR HGB 14.4 pg (27.0-31.0); PLATELET COUNT AUTOMATED 273 10*3/uL (130-400); RED BLOOD COUNT 4.36 10*6/uL (4.10-5.10); WHITE BLOOD COUNT 6.2 10*3/uL (4.8-10.8)
[2022-05-10 06:23] LABS: MANUAL DIFF REFLEX YES
[2022-05-10 06:24] LABS: ACT PARTIAL THROMBO TIME 23.8 SECONDS (20.0-32.1)
[2022-05-10 06:43] LABS: BASOPHILS 1 % (0-1); TOTAL CELLS COUNTED 100 #CELLS
[2022-05-10 06:44] LABS: ACANTHOCYTES FEW; MICROCYTOSIS MARKED; OVALOCYTES FEW; PLATELET SUFFICIENCY NORMAL (NORMAL); POLYCHROMASIA SLIGHT; ROULEAUX SLIGHT; SCHISTOCYTES FEW; TARGET CELLS FEW
[2022-05-10 07:27] LABS: FERRITIN 1.6 ng/mL (10.0-291.0)
[2022-05-10 07:58] LABS: VITAMIN D, 25-HYDROXY 22.6 ng/mL (30-100)
[2022-05-10 14:51] LABS: URINE AMPHETAMINES < 1000 (1000ng/ml); URINE BARBITURATES < 200 (200ng/ml); URINE BENZODIAZEPINES < 200 (200ng/ml); URINE CANNABINOIDS (THC) < 50 (50ng/ml); URINE COCAINE < 300 (300ng/ml); URINE METHADONE < 300 (300ng/ml); URINE OPIATES < 300 (300ng/ml)
[2022-05-10 14:52] LABS: URINE PHENCYCLIDINE < 25 (25ng/ml)
[2022-05-10] MEDS ORDERED: NORETHINDRONE0.35 M1 PO (15:26)
[2022-05-10 16:04] LABS: BASO # 0.1 10*3/uL (0.0-0.1); BASO % 0.7 % (0.0-1.0); EOS # 0.2 10*3/uL (0.0-0.4); EOS % 2.4 % (1.0-4.0); HEMATOCRIT 30.6 % (37.0-47.0); LYMPH # 1.2 10*3/uL (1.3-4.4); LYMPH % 17.4 % (27.0-41.0); MEAN CORPUSCULAR HGB 15.9 pg (27.0-31.0); MEAN CORPUSCULAR HGB CONC 25.5 g/dl (33.0-37.0); MEAN PLATELET VOLUME 9.5 fl (9.6-12.3); MONO # 0.4 10*3/uL (0.1-1.0); MONO % 6.3 % (3.0-9.0); NEUT # 4.8 10*3/uL (2.3-7.9); NEUT % 72.5 % (47.0-73.0); NUCLEATED RED BLOOD CELL 0.3 % (0.0-0.0); PLATELET COUNT AUTOMATED 267 10*3/uL (130-400); RED BLOOD COUNT 4.92 10*6/uL (4.10-5.10); RED CELL DISTRI WIDTH 24.7 % (0-14.5); WHITE BLOOD COUNT 6.7 10*3/uL (4.8-10.8)
[2022-05-10 16:05] LABS: MEAN CELL VOLUME 62.2 fl (81.0-99.0)
[2022-05-11] VITALS: BP 95/53
[2022-05-11 04:00] VITALS: BP 97/57
[2022-05-11 04:49] LABS: BUN 13 mg/dl (7-24); CHLORIDE 119 mmol/L (98-107); CREATININE 0.62 mg/dL (0.55-1.02); POTASSIUM 4.1 mmol/L (3.5-5.1); SODIUM 148 mmol/L (136-145)
[2022-05-11 06:26] LABS: BASO # 0.1 10*3/uL (0.0-0.1); BASO % 1.1 % (0.0-1.0); EOS # 0.2 10*3/uL (0.0-0.4); EOS % 4.4 % (1.0-4.0); HEMATOCRIT 26.3 % (37.0-47.0); LYMPH # 1.2 10*3/uL (1.3-4.4); LYMPH % 25.2 % (27.0-41.0); MEAN CELL VOLUME 61.2 fl (81.0-99.0); MEAN CORPUSCULAR HGB 16.3 pg (27.0-31.0); MEAN CORPUSCULAR HGB CONC 26.6 g/dl (33.0-37.0); MEAN PLATELET VOLUME 8.9 fl (9.6-12.3); MONO # 0.3 10*3/uL (0.1-1.0); MONO % 6.6 % (3.0-9.0); NEUT # 2.9 10*3/uL (2.3-7.9); NEUT % 62.3 % (47.0-73.0); PLATELET COUNT AUTOMATED 240 10*3/uL (130-400); RED CELL DISTRI WIDTH 24.8 % (0-14.5); WHITE BLOOD COUNT 4.7 10*3/uL (4.8-10.8)
[2022-05-11 08:00] VITALS: BP 110/75
[2022-05-11 12:00] VITALS: BP 99/62
[2022-05-11 16:00] VITALS: BP 116/69
[2022-05-11 20:00] VITALS: BP 100/59
[2022-05-12] VITALS (13 sets, daily range): BP systolic 95–125; BP diastolic 51–86
[2022-05-12 05:14] LABS: BUN 12 mg/dl (7-24); CHLORIDE 119 mmol/L (98-107); CREATININE 0.69 mg/dL (0.55-1.02); POTASSIUM 4.4 mmol/L (3.5-5.1); SODIUM 149 mmol/L (136-145)
[2022-05-12 06:06] LABS: HEMATOCRIT 26.7 % (37.0-47.0); MEAN CELL VOLUME 62.2 fl (81.0-99.0); MEAN CORPUSCULAR HGB 16.1 pg (27.0-31.0); MEAN CORPUSCULAR HGB CONC 25.8 g/dl (33.0-37.0); PLATELET COUNT AUTOMATED 245 10*3/uL (130-400); RED BLOOD COUNT 4.29 10*6/uL (4.10-5.10); RED CELL DISTRI WIDTH 25.5 % (0-14.5); WHITE BLOOD COUNT 5.3 10*3/uL (4.8-10.8)
[2022-05-12 06:07] LABS: MANUAL DIFF REFLEX YES
[2022-05-12 06:37] LABS: ATYPICAL LYMPHS 1 % (0-0); OVALOCYTES FEW; POLYCHROMASIA SLIGHT; TOTAL CELLS COUNTED 100 #CELLS
[2022-05-12 06:38] LABS: ACANTHOCYTES FEW; BURR CELLS FEW; MICROCYTOSIS MODERATE; PLATELET SUFFICIENCY NORMAL (NORMAL); SCHISTOCYTES FEW; TARGET CELLS FEW
[2022-05-13] VITALS: BP 114/68
[2022-05-13 05:57] LABS: BUN 13 mg/dl (7-24); CHLORIDE 118 mmol/L (98-107); CREATININE 0.56 mg/dL (0.55-1.02); POTASSIUM 3.9 mmol/L (3.5-5.1); SODIUM 148 mmol/L (136-145)
[2022-05-13 06:43] LABS: BASO # 0.1 10*3/uL (0.0-0.1); BASO % 0.8 % (0.0-1.0); EOS # 0.3 10*3/uL (0.0-0.4); HEMATOCRIT 28.3 % (37.0-47.0); LYMPH # 1.4 10*3/uL (1.3-4.4); LYMPH % 22.3 % (27.0-41.0); MEAN CORPUSCULAR HGB 18.1 pg (27.0-31.0); MEAN CORPUSCULAR HGB CONC 27.6 g/dl (33.0-37.0); MEAN PLATELET VOLUME 9.7 fl (9.6-12.3); MONO # 0.6 10*3/uL (0.1-1.0); MONO % 8.8 % (3.0-9.0); NEUT # 4.1 10*3/uL (2.3-7.9); NEUT % 63.2 % (47.0-73.0); PLATELET COUNT AUTOMATED 232 10*3/uL (130-400); RED CELL DISTRI WIDTH 28.6 % (0-14.5); WHITE BLOOD COUNT 6.5 10*3/uL (4.8-10.8)
[2022-05-13 07:00] LABS: MEAN CELL VOLUME 65.8 fl (81.0-99.0)
[2022-05-13 08:00] VITALS: BP 120/60
[2022-05-13] MEDS ORDERED: SOD FER GL62.5 MG/5 IV (11:36)
[2022-05-13] MEDS ORDERED: VITAMIN D350 MC2 PO (11:46)
[2022-05-13] MEDS ORDERED: B121000 MCG/1 IM (11:46)
[2022-05-13] MEDS ORDERED: CLONAZEPAM1 MG PO (11:46)
[2022-05-13] MEDS ORDERED: KEPPRA750 MG PO (11:47)
[2022-05-13 12:00] VITALS: BP 106/69
[2022-05-13] MEDS ORDERED: IMITREX100 MG PO (12:53)
[2022-05-13 16:00] VITALS: BP 111/59
== END 2022-05-13 17:36 | disposition home or self-care (01) | DRG 53 ==
LOC: ED 20:04 → ICCU 05-10 02:30 → EDHOLD 05-10 02:30 → ICCU 05-10 18:39 → 4E 05-13 05:37
PROVIDERS: Emergency Medicine; Internal Medicine; Student in an Organized Health Care Education/Training Program; ADMIT Internal Medicine; ATTEND Internal Medicine
PROC: 30233N1 Transfusion of Nonautologous Red Blood Cells into Peripheral Vein, Percutaneous Approach (ICD-10-PCS; principal; 2022-05-10)
PROC: 30233N1 Transfusion of Nonautologous Red Blood Cells into Peripheral Vein, Percutaneous Approach (ICD-10-PCS; 2022-05-12)
DX: R56.9 Unspecified convulsions (principal); F19.930 Other psychoactive substance use, unspecified with withdrawal, uncomplicated; F13.20 Sedative, hypnotic or anxiolytic dependence, uncomplicated; D50.9 Iron deficiency anemia, unspecified; E43 Unspecified severe protein-calorie malnutrition; F41.9 Anxiety disorder, unspecified; F32.9 Major depressive disorder, single episode, unspecified; E87.6 Hypokalemia; E53.8 Deficiency of other specified B group vitamins; K91.89 Other postprocedural complications and disorders of digestive system; E87.8 Other disorders of electrolyte and fluid balance, not elsewhere classified; E55.9 Vitamin D deficiency, unspecified; E87.0 Hyperosmolality and hypernatremia; Z88.8 Allergy status to other drugs, medicaments and biological substances; Z98.891 History of uterine scar from previous surgery; Z82.49 Family history of ischemic heart disease and other diseases of the circulatory system; Z98.84 Bariatric surgery status; Z68.31 Body mass index [BMI] 31.0-31.9, adult

== ENCOUNTER → 2022-05-16 | Outpatient (CLI) | payer OTHER ==
[~2022-05-16] MED LIST changes: +CLONAZEPAM1 MG PO; +KEPPRA750 MG PO; +NORETHINDRONE0.35 M1 PO; +SOD FER GL62.5 MG/5 IV; +VITAMIN D350 MC2 PO
[2022-05-16 19:00] LABS: HEMATOCRIT 36.7 % (37.0-47.0); MEAN CELL VOLUME 69.5 fl (81.0-99.0); RED BLOOD COUNT 5.28 10*6/uL (4.10-5.10); RED CELL DISTRI WIDTH 34.5 % (0-14.5)
[2022-05-16 19:06] LABS: BASO # 0.1 10*3/uL (0.0-0.1); BASO % 0.8 % (0.0-1.0); EOS # 0.2 10*3/uL (0.0-0.4); LYMPH # 1.4 10*3/uL (1.3-4.4); LYMPH % 20.6 % (27.0-41.0); MEAN CORPUSCULAR HGB 19.3 pg (27.0-31.0); MEAN CORPUSCULAR HGB CONC 27.8 g/dl (33.0-37.0); MONO # 0.5 10*3/uL (0.1-1.0); MONO % 6.9 % (3.0-9.0); NEUT # 4.5 10*3/uL (2.3-7.9); NEUT % 68.1 % (47.0-73.0); PLATELET COUNT AUTOMATED 252 10*3/uL (130-400); WHITE BLOOD COUNT 6.6 10*3/uL (4.8-10.8)
== END ==
LOC: LAB 18:30
PROVIDERS: ATTEND Internal Medicine
DX: R51.9 Headache, unspecified (principal)

== ENCOUNTER → 2022-05-18 | Outpatient (CLI) | payer OTHER ==
[2022-05-18 11:02] LABS: BASO # 0.1 10*3/uL (0.0-0.1); BASO % 0.7 % (0.0-1.0); EOS # 0.2 10*3/uL (0.0-0.4); EOS % 2.9 % (1.0-4.0); HEMATOCRIT 42.1 % (37.0-47.0); LYMPH # 1.7 10*3/uL (1.3-4.4); LYMPH % 22.1 % (27.0-41.0); MEAN CELL VOLUME 71.7 fl (81.0-99.0); MEAN CORPUSCULAR HGB CONC 27.3 g/dl (33.0-37.0); MEAN PLATELET VOLUME 9.1 fl (9.6-12.3); MONO # 0.4 10*3/uL (0.1-1.0); MONO % 5.4 % (3.0-9.0); NEUT # 5.3 10*3/uL (2.3-7.9); NEUT % 68.4 % (47.0-73.0); PLATELET COUNT AUTOMATED 281 10*3/uL (130-400); RED BLOOD COUNT 5.87 10*6/uL (4.10-5.10); RED CELL DISTRI WIDTH 35.9 % (0-14.5); WHITE BLOOD COUNT 7.7 10*3/uL (4.8-10.8)
[2022-05-18 11:04] LABS: MEAN CORPUSCULAR HGB 19.6 pg (27.0-31.0)
[2022-05-18 11:12] LABS: IRON 46 ug/dL (50-170)
[2022-05-18 11:34] LABS: FERRITIN 72.6 ng/mL (10.0-291.0)
== END | disposition home or self-care (01) ==
LOC: RESCLI 08:57
PROVIDERS: Student in an Organized Health Care Education/Training Program; ATTEND Student in an Organized Health Care Education/Training Program
DX: Z23 Encounter for immunization (principal); D64.9 Anemia, unspecified; R56.9 Unspecified convulsions; G43.019 Migraine without aura, intractable, without status migrainosus; F41.9 Anxiety disorder, unspecified; J30.2 Other seasonal allergic rhinitis; E55.9 Vitamin D deficiency, unspecified; F32.9 Major depressive disorder, single episode, unspecified; E53.8 Deficiency of other specified B group vitamins; D50.9 Iron deficiency anemia, unspecified; N28.89 Other specified disorders of kidney and ureter; Z90.5 Acquired absence of kidney; Z98.890 Other specified postprocedural states; Z82.49 Family history of ischemic heart disease and other diseases of the circulatory system; Z88.8 Allergy status to other drugs, medicaments and biological substances; Z79.01 Long term (current) use of anticoagulants; Z79.899 Other long term (current) drug therapy

== ENCOUNTER → 2022-05-25 | Outpatient (CLI) | payer OTHER | END | disposition home or self-care (01) | LOC: RESCLI 00:42 | PROVIDERS: ATTEND Student in an Organized Health Care Education/Training Program | DX: G43.019 Migraine without aura, intractable, without status migrainosus (principal); F41.9 Anxiety disorder, unspecified; J30.2 Other seasonal allergic rhinitis; E53.8 Deficiency of other specified B group vitamins; D50.9 Iron deficiency anemia, unspecified; M79.10 Myalgia, unspecified site; R19.7 Diarrhea, unspecified; R56.9 Unspecified convulsions; Z88.1 Allergy status to other antibiotic agents; Z82.49 Family history of ischemic heart disease and other diseases of the circulatory system; Z98.890 Other specified postprocedural states; Z79.01 Long term (current) use of anticoagulants; Z79.899 Other long term (current) drug therapy ==

== ENCOUNTER → 2022-06-01 | Outpatient (CLI) | payer OTHER | END | disposition home or self-care (01) | LOC: RESCLI 09:55 | PROVIDERS: ATTEND Student in an Organized Health Care Education/Training Program | DX: F41.9 Anxiety disorder, unspecified (principal); G43.019 Migraine without aura, intractable, without status migrainosus; J30.2 Other seasonal allergic rhinitis; E53.8 Deficiency of other specified B group vitamins; M79.10 Myalgia, unspecified site; E55.9 Vitamin D deficiency, unspecified; D50.9 Iron deficiency anemia, unspecified; F51.01 Primary insomnia; R56.9 Unspecified convulsions; F32.9 Major depressive disorder, single episode, unspecified; Z98.890 Other specified postprocedural states; Z88.1 Allergy status to other antibiotic agents; Z79.01 Long term (current) use of anticoagulants; Z79.899 Other long term (current) drug therapy ==

== ENCOUNTER → 2022-07-04 | Outpatient (CLI) | payer OTHER ==
[~2022-07-04] MED LIST changes: +'KLONOPIN0.5 MG PO; +AMITRIPTYLINE H75 MG PO; +CLARITIN10 MG PO; +FLONASE ALLERG9.9 ML NAS; +NURTEC ODT75 MG PO; +ONDANSETRON HYDR4 M1 PO; +ROPINIROLE HYD0.5 MG PO; +TOPAMAX100 M1 PO
[2022-07-04 10:01] LABS: BASO % 0.6 % (0.0-1.0); EOS # 0.2 10*3/uL (0.0-0.4); EOS % 2.6 % (1.0-4.0); HEMATOCRIT 47.4 % (37.0-47.0); LYMPH # 1.7 10*3/uL (1.3-4.4); LYMPH % 26.1 % (27.0-41.0); MEAN CELL VOLUME 80.7 fl (81.0-99.0); MEAN CORPUSCULAR HGB 24.7 pg (27.0-31.0); MEAN CORPUSCULAR HGB CONC 30.6 g/dl (33.0-37.0); MEAN PLATELET VOLUME 7.9 fl (9.6-12.3); MONO # 0.2 10*3/uL (0.1-1.0); MONO % 3.5 % (3.0-9.0); NEUT # 4.4 10*3/uL (2.3-7.9); NEUT % 66.9 % (47.0-73.0); PLATELET COUNT AUTOMATED 192 10*3/uL (130-400); RED BLOOD COUNT 5.87 10*6/uL (4.10-5.10); RED CELL DISTRI WIDTH 23.9 % (0-14.5); WHITE BLOOD COUNT 6.6 10*3/uL (4.8-10.8)
[2022-07-04 10:30] LABS: CHLORIDE 115 mmol/L (98-107); POTASSIUM 3.4 mmol/L (3.5-5.1); SODIUM 139 mmol/L (136-145)
[2022-07-04 10:36] LABS: ALKALINE PHOSPHATASE 84 U/L (45-117); BUN 16 mg/dl (7-24); CREATININE 0.97 mg/dL (0.55-1.02); SGPT/ALT 16 U/L (12-78); TOTAL PROTEIN 6.7 gm/dL (6.4-8.2)
[2022-07-06 12:05] LABS: TOPAMAX (TOPIRAMATE) 7.3 ug/mL (2.0-25.0)
== END | disposition home or self-care (01) ==
LOC: LAB 09:09
PROVIDERS: Internal Medicine; ATTEND Nurse Practitioner Family
DX: D50.9 Iron deficiency anemia, unspecified (principal)

== ENCOUNTER → 2022-07-13 | Outpatient (CLI) | payer OTHER | END | disposition home or self-care (01) | LOC: LAB 10:11 | PROVIDERS: ATTEND Family Medicine | DX: E53.8 Deficiency of other specified B group vitamins (principal) ==

== ENCOUNTER → 2022-07-18 | Outpatient (CLI) | payer OTHER ==
[2022-07-18 11:11] LABS: BILIRUBIN 1+ (Negative); BLOOD Negative (Negative); CLARITY Turbid (Clear); COLOR Yellow (Yellow); GLUCOSE Negative (Negative); KETONE Negative (Negative)
[2022-07-18 11:12] LABS: BACTERIA 1+; LEUKO ESTERASE Negative (Negative); MUCOUS TRACE; NITRITE Negative (Negative); PH 6.5 (4.5-8.0); RBC 0-2 rbc/hpf (0-2); UROBILINOGEN 0.2 E.U./dl (0.0-1.0)
== END | disposition home or self-care (01) ==
LOC: RESCLI 01:55
PROVIDERS: Student in an Organized Health Care Education/Training Program; ATTEND Internal Medicine
DX: G43.019 Migraine without aura, intractable, without status migrainosus (principal); E53.8 Deficiency of other specified B group vitamins; E55.9 Vitamin D deficiency, unspecified; F51.01 Primary insomnia; M79.10 Myalgia, unspecified site; J30.2 Other seasonal allergic rhinitis; F41.9 Anxiety disorder, unspecified; R33.9 Retention of urine, unspecified; Z30.9 Encounter for contraceptive management, unspecified; Z88.1 Allergy status to other antibiotic agents; Z82.49 Family history of ischemic heart disease and other diseases of the circulatory system; Z98.890 Other specified postprocedural states; Z79.899 Other long term (current) drug therapy

== ENCOUNTER → 2022-09-19 | Day surgery (SDC) | payer OTHER ==
[~2022-09-19] VITALS: Ht 172.7 cm; Wt 95.3 kg
[~2022-09-19] MED LIST changes: +HYDROCODONE-AC1 EAC1 PO
[2022-09-19 10:27] VITALS: BP 127/93
[2022-09-19 11:20] VITALS: BP 115/66
[2022-09-19 11:35] VITALS: BP 103/64
[2022-09-19 11:47] VITALS: BP 107/57
== END | disposition home or self-care (01) ==
LOC: SDC 09-15 10:15
PROVIDERS: ATTEND Surgery
DX: I87.2 Venous insufficiency (chronic) (peripheral) (principal); F41.9 Anxiety disorder, unspecified; F31.9 Bipolar disorder, unspecified; Z98.890 Other specified postprocedural states; Z98.84 Bariatric surgery status; Z79.899 Other long term (current) drug therapy

== ENCOUNTER → 2022-09-26 | Outpatient (CLI) | payer OTHER | END | disposition home or self-care (01) | LOC: RESCLI 01:11 | PROVIDERS: ATTEND Family Medicine | DX: G43.019 Migraine without aura, intractable, without status migrainosus (principal); J30.2 Other seasonal allergic rhinitis; F41.9 Anxiety disorder, unspecified; E53.8 Deficiency of other specified B group vitamins; D50.9 Iron deficiency anemia, unspecified; M79.10 Myalgia, unspecified site; E55.9 Vitamin D deficiency, unspecified; E16.2 Hypoglycemia, unspecified; Z12.39 Encounter for other screening for malignant neoplasm of breast; Z88.1 Allergy status to other antibiotic agents; Z98.890 Other specified postprocedural states; Z82.49 Family history of ischemic heart disease and other diseases of the circulatory system; Z79.899 Other long term (current) drug therapy ==

== ENCOUNTER → 2022-10-17 | Outpatient (CLI) | payer OTHER ==
[2022-10-17 11:35] LABS: URINE AMPHETAMINES Negative (1000ng/ml); URINE BARBITURATES Negative (200ng/ml); URINE BENZODIAZEPINES Negative (200ng/ml); URINE CANNABINOIDS (THC) Negative (50ng/ml); URINE COCAINE Negative (300ng/ml); URINE METHADONE Negative (300ng/ml); URINE OPIATES Negative (300ng/ml); URINE PHENCYCLIDINE Negative (25ng/ml)
== END | disposition home or self-care (01) ==
LOC: RESCLI 01:28
PROVIDERS: Student in an Organized Health Care Education/Training Program; ATTEND Internal Medicine
DX: R52 Pain, unspecified (principal); J30.2 Other seasonal allergic rhinitis; G43.019 Migraine without aura, intractable, without status migrainosus; F41.9 Anxiety disorder, unspecified; R56.9 Unspecified convulsions; E53.8 Deficiency of other specified B group vitamins; D50.9 Iron deficiency anemia, unspecified; Z30.9 Encounter for contraceptive management, unspecified; E16.2 Hypoglycemia, unspecified; F32.9 Major depressive disorder, single episode, unspecified; G25.81 Restless legs syndrome; Z88.0 Allergy status to penicillin; Z82.49 Family history of ischemic heart disease and other diseases of the circulatory system; Z98.890 Other specified postprocedural states; Z79.899 Other long term (current) drug therapy

== ENCOUNTER 2023-01-26 13:00 | Emergency (ER) | payer OTHER ==
[~2023-01-26] VITALS: Wt 104.3 kg
[2023-01-26] MEDS ORDERED: NAPROSYN500 MG PO (14:32)
== END 2023-01-26 14:55 | disposition home or self-care (01) ==
LOC: ED 13:00
DX: S49.91XA Unspecified injury of right shoulder and upper arm, initial encounter (principal); D64.9 Anemia, unspecified; F31.9 Bipolar disorder, unspecified; F41.9 Anxiety disorder, unspecified; Z88.1 Allergy status to other antibiotic agents; Z98.890 Other specified postprocedural states; Z87.891 Personal history of nicotine dependence; X50.0XXA Overexertion from strenuous movement or load, initial encounter; Y93.89 Activity, other specified; Y92.89 Other specified places as the place of occurrence of the external cause; Y99.8 Other external cause status

== ENCOUNTER → 2023-02-16 | Outpatient (CLI) | payer OTHER ==
[~2023-02-16] MED LIST changes: +NAPROSYN500 MG PO
== END | disposition home or self-care (01) ==
LOC: RESCLI 08:20
PROVIDERS: ATTEND Internal Medicine
DX: J30.2 Other seasonal allergic rhinitis (principal); G43.019 Migraine without aura, intractable, without status migrainosus; F41.9 Anxiety disorder, unspecified; R56.9 Unspecified convulsions; Z30.9 Encounter for contraceptive management, unspecified; E55.9 Vitamin D deficiency, unspecified; E16.2 Hypoglycemia, unspecified; G25.81 Restless legs syndrome; R52 Pain, unspecified; D50.9 Iron deficiency anemia, unspecified; B35.4 Tinea corporis; L30.9 Dermatitis, unspecified; F32.9 Major depressive disorder, single episode, unspecified; S46.009A Unspecified injury of muscle(s) and tendon(s) of the rotator cuff of unspecified shoulder, initial encounter; Z82.49 Family history of ischemic heart disease and other diseases of the circulatory system; Z98.890 Other specified postprocedural states; Z88.0 Allergy status to penicillin; Z79.899 Other long term (current) drug therapy; X58.XXXA Exposure to other specified factors, initial encounter; Y93.89 Activity, other specified; Y92.89 Other specified places as the place of occurrence of the external cause; Y99.8 Other external cause status

== ENCOUNTER → 2023-03-09 | Outpatient (CLI) | payer OTHER ==
[2023-03-13 19:06] LABS: TOPAMAX (TOPIRAMATE) 3.8 ug/mL (2.0-25.0)
== END | disposition home or self-care (01) ==
LOC: LAB 10:31
PROVIDERS: ATTEND Nurse Practitioner Family
DX: M54.2 Cervicalgia (principal); E53.8 Deficiency of other specified B group vitamins

== ENCOUNTER → 2023-09-01 | Outpatient (CLI) | payer OTHER | END | disposition home or self-care (01) | LOC: ORTHO 03:26 | PROVIDERS: ATTEND Orthopaedic Surgery | DX: M17.11 Unilateral primary osteoarthritis, right knee (principal) ==